=== PATIENT | female | born 1980 | race Caucasian/White ===

== ENCOUNTER 2024-01-21 10:37 | Emergency (ER) | payer OTHER, SELFPAY ==
[2024-01-21 10:47] VITALS: BP 146/89
--- NOTE | 2024-01-21 11:46 | ED.GENMED ---
History of Present Illness
General
Chief Complaint: Problems
Time Seen by Provider: 01/21/24 11:37
History of Present Illness
History of Present Illness:
43-year-old female, currently 7 weeks 1 day gestational age (G6, P0) presents with vaginal bleeding this morning. Has used 1 pad thus far today. She had IVF with donor eggs performed. Ultrasound yesterday at her fertility clinic was reportedly
normal according to the patient. Denies any abdominal pain
Review of Systems
Review of Systems
Allergies reviewed?: Yes
All Other Systems: ROS reviewed and negative except as documented in HPI and ROS
Phy Exam
Physical Exam
Physical Exam:
GEN: Well appearing, NAD, WDWN
HEENT: Oral mucosa moist, no scleral icterus
Cardiac: Regular rate
Lung: No respiratory distress, no tachypnea
Abdomen: Soft, nontender
MSK: No gross deformity or injuries
Skin: Good color, no pallor or jaundice, no rashes
Neuro: AO x3, moves all extremities freely
Psych: Calm, cooperative
Course
Orders/Labs/Results
Orders:
Orders
01/21/24 11:45
US W Transvaginal Urgent
Comment:
Reason For Exam: vaginal bleeding 7wk GA
Vital Signs
Initial and Last Documented VS:
Initial Vital Signs
Temp Pulse Resp BP Pulse Ox
98.4 F 81 16 146/89 100
01/21/24 10:47 01/21/24 10:47 01/21/24 10:47 01/21/24 10:47 01/21/24 10:47
Last Documented Vital Signs
Temp Pulse Resp BP Pulse Ox
98.4 F 80 18 142/73 99
01/21/24 10:47 01/21/24 13:51 01/21/24 13:51 01/21/24 13:51 01/21/24 13:51
Information
Weeks gestation: Weeks: (7w1d)
Location: Location: ([facility])
MDM/Problems Addressed
MDM/Problems Addressed:
Ultrasound reveals intrauterine with good heart tones however a subchorionic hemorrhage is noted. Patient is advised strict pelvic rest until [employer] follow-up on Tuesday. She is known to be B positive blood type thus no RhoGAM is needed
*Critical Care Note
Total Time (30-74mins, 75-104mins- exclusive of procedures): Not Applicable
ED Attending Note
-
Portions of this chart may have been created with voice recognition software.� Occasional wrong word or��sound alike� substitutions may have occurred due to the inherent limitations of voice recognition software.
Discharge Plan
Departure
Patient Disposition: Home (Routine Discharge)
Date of Disposition: 01/21/24
Time of Disposition: 13:46
Patient with high blood pressure during this ER visit?: Yes
Discharge Problem:
Subchorionic hemorrhage in first trimester
Instructions: Threatened Miscarriage (DC), Subchorionic Bleeding
Referrals:
Simran Nickerson MD [Family Provider] -
Activity Restrictions/Additional Instructions:
Of the subchorionic hemorrhage is reassuring against a miscarriage, if you have any increased bleeding or cramping a miscarriage is still a possibility
We recommend strict pelvic rest until you follow-up with your [employer] which includes no lifting greater than 15 pounds, vigorous exertion, or intercourse
Interventions
Interventions:
*Risk Screen - Suicide Last Done: 01/21/24 11:26
*General Assessment Last Done: 01/21/24 11:26
*Neglect/Abuse Screening Last Done: 01/21/24 11:26
ED- Fall Risk Assessment Last Done: 01/21/24 11:25
*Nursing Disposition Last Done: 01/21/24 13:58
ED-Female Genitourinary Assessment Last Done: 01/21/24 11:25
Discharge Date and Time
Discharge Date/Time: 01/21/24 14:04
Print Language: CAMEROONIAN
[2024-01-21 13:51] VITALS: BP 142/73
== END 2024-01-21 14:04 | disposition home or self-care (01) ==
LOC: EMR 10:37
PROVIDERS: EMERGENCY PHYSICIAN Emergency Medicine; FAMILY PHYSICIAN Family Medicine
DX: O20.8 Other hemorrhage in early pregnancy (principal); Z3A.01 Less than 8 weeks gestation of pregnancy; R03.0 Elevated blood-pressure reading, without diagnosis of hypertension
CPT/HCPCS: 99284; 76801; 76817